=== PATIENT | female | born 1965 | race Two or more races ===

== ENCOUNTER 2020-06-28 19:13 | Emergency (ER) | payer MEDICAID ==
[~2020-06-28] VITALS: Ht 160 cm; Wt 64.4 kg
[2020-06-28 19:24] VITALS: Ht 160 cm; Wt 64.4 kg
[2020-06-28 20:39] VITALS: BP 145/74
== END 2020-06-28 20:39 | disposition home or self-care (01) ==
LOC: ED 19:13
DX: S80.01XA Contusion of right knee, initial encounter (principal); Z88.0 Allergy status to penicillin; Z88.2 Allergy status to sulfonamides; W01.0XXA Fall on same level from slipping, tripping and stumbling without subsequent striking against object, initial encounter; Y93.89 Activity, other specified; Y92.89 Other specified places as the place of occurrence of the external cause; Y92.481 Parking lot as the place of occurrence of the external cause